=== PATIENT | female | born 1935 | race Caucasian/White ===

== ENCOUNTER 2017-08-01 08:36 | Day surgery (SDC) | payer OTHER ==
[~2017-08-01] VITALS: Ht 172.7 cm; Wt 83.5 kg
[~2017-08-01 08:36] MED LIST: CHOL10002 PO; FOLI1 PO; Omeprazole20 M1 PO; RANI150 PO; Synthroid150 MCG PO; VENL150ER PO
== END 2017-08-01 11:34 | disposition home or self-care (01) ==
LOC: ORSCSDS 08:36
PROVIDERS: Internal Medicine Gastroenterology
PROC: 0DJD8ZZ Inspection of Lower Intestinal Tract, Via Natural or Artificial Opening Endoscopic (ICD-10-PCS; principal; 2017-08-01 09:45)
DX: Z12.11 Encounter for screening for malignant neoplasm of colon (principal); K57.30 Diverticulosis of large intestine without perforation or abscess without bleeding; Z80.0 Family history of malignant neoplasm of digestive organs; K21.9 Gastro-esophageal reflux disease without esophagitis; H40.9 Unspecified glaucoma; E03.9 Hypothyroidism, unspecified; F41.8 Other specified anxiety disorders; Z87.891 Personal history of nicotine dependence; Z79.899 Other long term (current) drug therapy
CPT/HCPCS: J7120

== ENCOUNTER 2019-04-15 20:00 | Inpatient (IN) | payer OTHER ==
[~2019-04-15] VITALS: Ht 172.7 cm; Wt 83.9 kg
[~2019-04-15 20:00] MED LIST changes: +EUTHYROX150 MCG PO; -Synthroid150 MCG PO
[2019-04-15 21:00] LABS: BASOPHILS ABSOLUTE AUTO 0.07 K/mm3 (0.00-0.23); BASOPHILS PERCENT AUTO 1 % (0-2); EOSINOPHILS ABSOLUTE AUTO 0.26 K/mm3 (0.00-0.68); EOSINOPHILS PERCENT AUTO 3 % (0-6); Hematocrit 40.1 % (33.0-51.0); Hemoglobin 12.8 g/dL (11.5-16.0); IMMATURE GRAN ABSOLUTE AUTO 0.02 K/mm3 (0.00-0.10); IMMATURE GRAN PERCENT AUTO 0 % (0-1); LYMPHOCYTES ABSOLUTE AUTO 3.07 K/mm3 (0.84-5.20); LYMPHOCYTES PERCENT AUTO 34 % (21-46); MONOCYTES ABSOLUTE AUTO 0.99 K/mm3 (0.16-1.47); MONOCYTES PERCENT AUTO 11 % (4-13); Mean Corpuscular HGB 30.8 pg (26.0-34.0); Mean Corpuscular HGB Conc 31.9 g/dL (31.5-36.5); Mean Corpuscular Volume 97 fL (80-100); Mean Platelet Volume 11.5 fL (9.1-12.4); NEUTROPHILS ABSOLUTE AUTO 4.72 K/mm3 (1.96-9.15); NEUTROPHILS PERCENT AUTO 52 % (41-73); Platelet Count 226 K/mm3 (150-400); RDW Coefficient Variation 13.7 % (11.7-14.2); Red Blood Cell Count 4.15 M/mm3 (3.80-5.20); White Blood Cell Count 9.13 K/mm3 (4.00-11.30)
[2019-04-15 21:30] LABS: Alanine Aminotransfer (ALT/SGP 27 U/L (12-78); Albumin, Blood 3.7 g/dL (3.4-5.0); Albumin/Globulin Ratio 0.9 (0.8-1.8); Alk Phos 80 U/L (50-136); Anion Gap 5 mmol/L (6-16); Aspartate Aminotrans (AST/SGOT 30 U/L (12-37); Bilirubin, Total 0.3 mg/dL (0.1-1.0); Blood Urea Nitrogen 15 mg/dL (8-24); Bun/Creatinine Ratio 24.4 (12.0-20.0); CO2, Blood 29 mmol/L (21-32); Calcium, Blood 9.3 mg/dL (8.5-10.1); Chloride, Blood 101 mmol/L (98-108); Creatinine, Blood 0.62 mg/dL (0.40-1.00); Globulin, Blood 4.3 g/dL (2.2-4.0); Glomerular Filtration Rate >60 (60-); Glucose, Blood 79 mg/dL (70-99); Potassium, Blood 3.8 mmol/L (3.5-5.5); Sodium, Blood 135 mmol/L (136-145)
[2019-04-16] MEDS ORDERED: SENNA-S LAXATI1 EACH PO (00:04)
[2019-04-16] MEDS ORDERED: VITAMIN B-12 PO (00:05)
[2019-04-16] MEDS ORDERED: Hair, Skin & N1 EACH PO (00:06)
[2019-04-16] MEDS ORDERED: Pepcid20 MG PO (00:10)
[2019-04-16 01:29] LABS: Source, Urine Voided
[2019-04-16 01:31] LABS: Bilirubin, Urine Neg (Neg); Blood, Urine 1+ (Neg); Glucose Qualitative, Urine Neg (Neg); Ketones, Urine Neg (Neg); Leukocyte Esterase, Urine 3+ (Neg); Nitrite, Urine Neg (Neg); Protein, Urine Neg (Neg); Specific Gravity, Urine 1.005 (1.003-1.022); Urobilinogen, Urine NORM (Normal)
[2019-04-16 01:41] LABS: Amorphous Mod (0-Heavy); Appearance, Urine Hazy (Clear); Bacteria Mod /hpf; Color, Urine Yellow (P-Yellow); Squamous Epithelial Cells Not Seen /hpf (Few)
[2019-04-16 06:22] LABS: C-Reactive Protein, High Sens. 1.6 mg/L (0.000-3.000)
[2019-04-16 06:31] LABS: Thyroid Stimulating Hormone 16.8 uIU/mL (0.360-4.800)
--- NOTE | 2019-04-16 16:11 | NUR ---
[facility] transfer has been started
--- NOTE | 2019-04-16 16:16 | NUR ---
Provided emotional support to family and prayer for pt at bedside. Pt is being transferred to [facility] this afternoon.
--- NOTE | 2019-04-16 17:22 | NUR ---
SHIFT SUMMARY- PT IS PLESANT AND COOPERATIVE. PT HAS BEEN CONFUSED THOUGHOUT THIS SHIFT, BUT SHE REORIENTS WELL. SHE WAS VERY AGITATED THIS MORNING AND USED HER CALL LIGHT FREQUENTLY. SHE HAD AN INCREASED PULSE WHICH DECREASED AFTER HER MORNING MEDICATIONS. SHE DID NOT WANT TO BE LEFT ALONE. PT SON WAS IN THE ROOM FOR SEVERAL HOURS THIS AFTERNOON AND THIS CALMED HER. SHE WAS EVALUATED BY PHYSICAL THERAPY, OCCUPATIONAL THERAPY, AND SPEECH THERAPY TODAY. PT IS NO ON A MECHANICAL SOFT DIET, NO STRAWS, AND MEDICATIONS CRUSHED IN APPLESAUCE.
--- NOTE | 2019-04-16 17:37 | NUR ---
PT IS A/O, COOPERATIVE AND PLESANT. PT CONTINUES TO HAVE WEAKNESS IN HER LOWER EXTREMITIES. PT IS AWAITING A COBRA TRANSFER TO [facility]. PT DOWN TO RAIDIOLOGY FOR CT OF THE CHEST AND ABDOMEN WITH CONTRAST. PT TOLERATING CONTRAST WELL. PT EATING AND DRINKING WELL. FAMILY AT BEDSIDE THROUGHOUT THIS SHIFT.
--- NOTE | 2019-04-17 01:59 | NUR ---
TYLENOL RECIEVED FOR L.HIP PAIN. PT NOW RESTING W/O S/S DISTRESS.
--- NOTE | 2019-04-17 05:27 | NUR ---
SUMMARY: A/OX4, CALLS APPROPRIATELY AND SPECIFIES NEEDS. SHE REMAINS ON BEDREST W/Q2H REPOSITIONING FOR EXTREME BLE WEAKNESS/NEAR FLACIDITY R/T NEW DX ACUTE TRANSVERSE MYELITIS. PT TO COBRA T/F WHEN BED AVAILABLE TO [facility]. SHE'S NEWLY INCONTINENT OF BLADDER AND BOWEL SINCE SYMPTOMS BEGAN BUT OCCASIONALLY IS AWARE SO ATTEMPTS TO USE BEDPAN. OTHERWISE ATTENDS ARE CHANGED PRN D/T LACKING SENSATION OF VOID OR BM. TYLENOL RECIEVED X2 DOSES FOR TOLERABLE CONTROL OF L.HIP PAIN. NO ACUTE CHANGES, VSS/AFEBRILE. WCTM/REPORT TO DAY RN.
--- NOTE | 2019-04-17 16:14 | NUR ---
FAMILY AT BEDSIDE THROUGHOUT THE DAY. SPOKE WITH DR. LEON REGARDING TRANSFER. AT THIS TIME NO BEDS AVAILABLE. ORDERS PLACED FOR HOME MEDICATION. TRANSFER VIA OVERHEAD LIFT TO CHAIR. SITTING IN CHAIR. SCDS PLACED.
--- NOTE | 2019-04-17 18:18 | NUR ---
SHIFT SUMMARY PATIENT A/O X 4. FAMILY AT BEDSIDE LARGEST PORTION OF SHIFT. PATIENT IS INTENDED TO BE TRANSFERRED D/T ACUITY AND COMPLEXITY, HOWEVER NO BEDS AVAILABLE AT THIS TIME. LUMBAR PUNCTURE ORDER PLACED AND SHOULD BE COMPLETED 04/18/19. INCONT EPISODES FOLLOWED BY [facility] CARE TO KEEP PATIENT DRY. PATIENT REMAINS FREE OF FALLS FOR ENTIRETY OF SHIFT. SCD'S IN PLACE ON PATIENT AND TO THE LIKING OF PATIENT.
--- NOTE | 2019-04-18 04:26 | NUR ---
SHIFT SUMMARY NO ACUTE CHANGES OVERNIGHT. NO IMPROVEMENT IN BLE MOVEMENT, BLE FLACCID SENSATION INTACT. PT REPORTS GRADUAL DECLINE AND EVENTUAL IMMOBILITY OVER THE "LAST MONTH OR SO". PT TO HAVE SPINAL TAP TODAY. DENIES PAIN. WILL CONT TO MONITOR AND PROVIDE CARE UNTIL PRESUMED BY ONCOMING RN.
[2019-04-18 05:51] LABS: International Normalized Ratio 0.93; Prothrombin Time Results 9.9 Sec (9.7-11.5)
[2019-04-18 11:15] LABS: Automated CSF RBC Count 0.003 M/mm3 (0-0); Automated CSF WBC Count 0.023 K/mm3 (0-5); RBC Count, CSF 3000 /mm3 (0-0); WBC Count, CSF 23 /mm3 (0-5)
[2019-04-18 11:17] LABS: Glucose, CSF 59 mg/dL (40-70)
[2019-04-18 12:10] LABS: Eosinophils, CSF 2 % (0-0); Lymphocytes, CSF 47 % (40-80); Monocytes, CSF 25 % (15-45); Neutrophils, CSF 26 % (0-6)
[2019-04-18 12:11] LABS: Appearance, CSF Clear (Clear); Color, CSF Pink (No Color)
--- NOTE | 2019-04-18 15:27 | NUR ---
[facility] BED UPDATE PER PHYSICS DEPARTMENT CHAIR NO BEDS AT THIS TIME.
--- NOTE | 2019-04-18 18:24 | NUR ---
SHIFT SUMMARY PATIENT CONTINUES TO HAVE NO ABILITY TO MOVE LEGS WILLINGLY. SOME REFLEX NOTED TO LEGS, L MORE THAN R. UP TO CHAIR TODAY. LP PERFORMED. ORDERS PLACED PER DR. BHARDWAJ AT BEDSIDE THROUGHOUT THE DAY.
--- NOTE | 2019-04-19 04:54 | NUR ---
SHIFT SUMMARY: VSS. TEMP 99.1. A/OX3. CONT W/ VERY MINIMAL MOVEMENT IN BLE. SLIGHT TWITCHES OF TOES WITH INTENTIONAL MOVEMENT. STATES SENSATION IS INTACT IN BLE. DENIES PAIN. MAKING NEEDS KNOWN. CALL BUTTON IN REACH, BED LOW, FREQUENT CHECKS.
[2019-04-19 06:18] LABS: Anion Gap 6 mmol/L (6-16); Blood Urea Nitrogen 18 mg/dL (8-24); Bun/Creatinine Ratio 37.6 (12.0-20.0); CO2, Blood 26 mmol/L (21-32); Chloride, Blood 101 mmol/L (98-108); Creatinine, Blood 0.48 mg/dL (0.40-1.00); Glomerular Filtration Rate >60 (60-); Glucose, Blood 163 mg/dL (70-99); Potassium, Blood 4.6 mmol/L (3.5-5.5); Sodium, Blood 133 mmol/L (136-145)
--- NOTE | 2019-04-19 12:09 | NUR ---
PT REPORTS NUMBNESS CONTINUING TO CLIMB UP. PT TO USE INCENTIVE SPIROMETER IS AT 2500
--- NOTE | 2019-04-19 15:01 | NUR ---
PT LEFT UNIT AT 1501 VIA GURNEY FOR COBRA TRANSFER TO [facility]. CALLED TO GIVE REPORT AWAITING CALL BACK FROM [facility]
--- NOTE | 2019-04-19 16:30 | NUR ---
CALLED [facility] TO GIVE REPORT TO NURSE, WAS UNAVALIABLE TO TAKE REPORT AT THIS TIME AND WILL CALL ME BACK.
--- NOTE | 2019-04-19 17:48 | NUR ---
Provided encouragement to pt and family. Meliza tells me she is hopeful for answers and recovery. She is being transferred this afternoon.
--- NOTE | 2019-04-19 18:33 | NUR ---
ATTEMPTED TO CALL [facility] TO GIVE REPORT. THEY WILL CALL BACK
--- NOTE | 2019-04-19 18:42 | NUR ---
REPORT GIVEN TO GERBER SONI AT [facility]
== END 2019-04-19 15:00 | disposition short-term general hospital (02) | DRG 99 ==
LOC: ER 20:00 → MEDS 20:01
PROVIDERS: Internal Medicine; Physician Assistant; ADMIT Internal Medicine
PROC: 009U3ZX Drainage of Spinal Canal, Percutaneous Approach, Diagnostic (ICD-10-PCS; principal; 2019-04-18)
PROC: B01BZZZ Fluoroscopy of Spinal Cord (ICD-10-PCS; 2019-04-18)
DX: G37.3 Acute transverse myelitis in demyelinating disease of central nervous system (principal); E03.9 Hypothyroidism, unspecified; F41.9 Anxiety disorder, unspecified; R32 Unspecified urinary incontinence; R54 Age-related physical debility; Z68.27 Body mass index [BMI] 27.0-27.9, adult; Z87.891 Personal history of nicotine dependence; Z91.81 History of falling
CPT/HCPCS: 36415; 62270; 70450; 71260; 72156; 72157; 74177; 77003; 80048; 80053; 81001; 82945; 84157; 84443; 85025; 85610; 85651; 85730; 86141; 87070; 87086; 87205; 88108; 89051; 96360; 97163; 97530; 99285; A9577; G0378; J2930; Q9967

== ENCOUNTER 2019-07-01 05:40 | Emergency (ER) | payer OTHER ==
[~2019-07-01] VITALS: Ht 160 cm; Wt 77.1 kg
[~2019-07-01 05:40] MED LIST changes: +Hair, Skin & N1 EACH PO; +Pepcid20 MG PO; +SENNA-S LAXATI1 EACH PO; +VITAMIN B-12 PO
[2019-07-01 06:01] LABS: BASOPHILS ABSOLUTE AUTO 0.12 K/mm3 (0.00-0.23); BASOPHILS PERCENT AUTO 1 % (0-2); EOSINOPHILS ABSOLUTE AUTO 0.06 K/mm3 (0.00-0.68); EOSINOPHILS PERCENT AUTO 1 % (0-6); Hematocrit 43.9 % (33.0-51.0); Hemoglobin 13.5 g/dL (11.5-16.0); IMMATURE GRAN ABSOLUTE AUTO 0.94 K/mm3 (0.00-0.10); IMMATURE GRAN PERCENT AUTO 8 % (0-1); LYMPHOCYTES ABSOLUTE AUTO 4.54 K/mm3 (0.84-5.20); LYMPHOCYTES PERCENT AUTO 37 % (21-46); MONOCYTES ABSOLUTE AUTO 1.07 K/mm3 (0.16-1.47); MONOCYTES PERCENT AUTO 9 % (4-13); Mean Corpuscular HGB 32.5 pg (26.0-34.0); Mean Corpuscular HGB Conc 30.8 g/dL (31.5-36.5); Mean Corpuscular Volume 106 fL (80-100); Mean Platelet Volume 11.7 fL (9.1-12.4); NEUTROPHILS ABSOLUTE AUTO 5.66 K/mm3 (1.96-9.15); NEUTROPHILS PERCENT AUTO 46 % (41-73); NRBC ABSOLUTE 0.02 K/mm3 (0.00-0.02); NRBC Auto 0.2 /100 WBC (0.0-0.2); Platelet Count 149 K/mm3 (150-400); RDW Coefficient Variation 16.7 % (11.7-14.2); RDW Standard Deviation 64.9 fL (35.1-46.3); Red Blood Cell Count 4.15 M/mm3 (3.80-5.20); White Blood Cell Count 12.39 K/mm3 (4.00-11.30)
[2019-07-01 06:19] LABS: BAND PERCENT MAN 8 % (0-8); BASOPHILS PERCENT MAN 0 % (0-2); EOSINOPHILS PERCENT MAN 0 % (0-6); LYMPHOCYTES ABSOLUTE MAN 4.83 K/mm3 (0.84-5.20); LYMPHOCYTES PERCENT MAN 39 % (21-46); METAMYELOCYTE ABSOLUTE MAN 0.24 K/mm3 (0.00-0.00); METAMYELOCYTE PERCENT MAN 2 % (0-0); MONOCYTES ABSOLUTE MAN 0.74 K/mm3 (0.16-1.47); MONOCYTES PERCENT MAN 6 % (4-13); MYELOCYTE ABSOLUTE MAN 0.24 K/mm3 (0.00-0.00); MYELOCYTE PERCENT MAN 2 % (0-0); NEUTROPHILS ABSOLUTE MAN 6.31 K/mm3 (1.96-9.15); SEG NEUTROPHILS PERCENT MAN 43 % (41-73); TOTAL CELLS COUNTED 100
[2019-07-01 06:45] LABS: Troponin I 0.288 ng/mL (0.000-0.040)
[2019-07-01 06:56] LABS: Alanine Aminotransfer (ALT/SGP 950 U/L (12-78); Albumin/Globulin Ratio 0.6 (0.8-1.8); Alk Phos 64 U/L (50-136); Anion Gap 9 mmol/L (6-16); Aspartate Aminotrans (AST/SGOT 830 U/L (12-37); Bilirubin, Total 0.2 mg/dL (0.1-1.0); Blood Urea Nitrogen 28 mg/dL (8-24); Bun/Creatinine Ratio 40.8 (12.0-20.0); CO2, Blood 20 mmol/L (21-32); Calcium, Blood 9.3 mg/dL (8.5-10.1); Chloride, Blood 100 mmol/L (98-108); Creatinine, Blood 0.69 mg/dL (0.40-1.00); Globulin, Blood 3.2 g/dL (2.2-4.0); Glomerular Filtration Rate >60 (60-); Glucose, Blood 239 mg/dL (70-99); Sodium, Blood 129 mmol/L (136-145); Total Protein, Blood 5.2 g/dL (6.4-8.2)
[2019-07-01 06:58] LABS: Potassium, Blood 9.1 mmol/L (3.5-5.5)
[2019-07-01 07:19] LABS: Creatine Kinase MB 2.2 ng/mL (0.0-3.6); Creatine Kinase MB Index 1.1 (0.0-4.0)
== END 2019-07-01 08:33 ==
LOC: ER 05:40
PROVIDERS: Emergency Medicine
DX: I46.9 Cardiac arrest, cause unspecified (principal); Z79.899 Other long term (current) drug therapy; E03.9 Hypothyroidism, unspecified; Z87.891 Personal history of nicotine dependence
CPT/HCPCS: 36415; 80053; 82550; 82553; 83880; 84484; 85025; 92950; 93005; 93010; 96365-59; 96375-59; 96376-59; 99291-25; J0171; J0330; J1815; J7030; J7060